=== PATIENT | male | born 1970 ===

== ENCOUNTER 2024-08-03 15:54 | Outpatient (REF) | payer MEDICAID, SELFPAY ==
[2024-08-03 15:12] LABS: Abs Immature Grans 0.02 10^3/uL (0.0-0.06); Absolute Basophil Count 0.06 10^3/uL (0.0-0.2); Absolute Lymphocyte Count 1.47 10^3/uL (1.2-3.4); Absolute Monocyte Count 0.93 10^3/uL (0.1-0.8); Absolute Neutrophil Count 2.92 10^3/uL (1.2-6.7); Basophils % 1.1 %; Eosinophils % 3.6 %; HCT 42.7 % (40.0-50.0); HGB 14.4 g/dL (13.5-17.5); Immature Grans % 0.4 %; Lymphocytes % 26.3 %; MCH 32.7 pg (27.0-33.0); MCHC 33.7 % (32.0-36.0); MCV 97 fL (80-95); MPV 12.4 fL (8.0-11.0); Monocytes % 16.6 %; Platelet Count 105 10^3/uL (130-400); RDW 12.5 % (11.8-14.1); RDW-SD 45.4 fL
[2024-08-03 16:33] LABS: Hemoglobin A1C 5.1 % (<5.7)
[2024-08-03 17:26] LABS: ALT 155 U/L (16-63); AST 131 U/L (15-37); Albumin 3.2 g/dL (3.4-5.0); Alkaline Phosphatase 133 U/L (46-116); Anion Gap 5.1 mmol/L (3-11); BUN 5 mg/dL (7-18); Bilirubin, Total 0.9 mg/dL (0.2-1.0); CO2 31.9 mmol/L (21.0-32.0); CREATININE 0.7 mg/dL (0.70-1.30); Calcium 9.1 mg/dL (8.5-10.1); Chloride 102 mmol/L (98-107); Estimated GFR 108.82 (mL/min/1.73m2); GGT 238 U/L (15-85); Glucose 69 mg/dL (74-106); Potassium 4.4 mmol/L (3.5-5.1); Sodium 139 mmol/L (136-145); TSH 1.29 uIU/mL (0.36-3.74); Total Protein 7.6 g/dL (6.4-8.2)
[2024-08-03 18:06] LABS: Calculated LDL 92 mg/dL (<100); Cholesterol 146 mg/dL (<200); Folate 7.5 ng/mL (8.6-20.0); HDL Cholesterol 39 mg/dL (>or=40); Triglyceride 78 mg/dL (<150); Vitamin B12 860 pg/mL (193-986)
[2024-08-06 10:53] LABS: Lyme Ab w Rflx to Lyme Confirm Negative (Negative)
[2024-08-06 12:28] LABS: HCV RNA Detection Quantitative 1780000 IU/mL (Undetected); HCV RNA Qualitative Detected (Undetected)
[2024-08-06 20:35] LABS: Anaplasma phagocytophilum Negative (Negative); B. miyamotoi PCR Negative (Negative); Babesia divergens/MO-1 Negative (Negative); Babesia duncani Negative (Negative); Babesia microti Negative (Negative); Ehrlichia chaffeensis Negative (Negative); Ehrlichia ewingii/canis Negative (Negative); Ehrlichia muris eauclairensis Negative (Negative)
[2024-08-08 09:01] LABS: HCV Genotype 1a (Undetected)
== END 2024-08-03 15:55 | disposition home or self-care (01) ==
LOC: NCHCN 15:54
PROVIDERS: Visit Provider Family Medicine
DX: R53.83 Other fatigue (principal); B18.2 Chronic viral hepatitis C; Z13.220 Encounter for screening for lipoid disorders; Z13.1 Encounter for screening for diabetes mellitus
CPT/HCPCS: 80053; 80061; 87522; 87798; 82105; 82607; 82746; 82977; 83036; 84443; 85025; 86618; 87521